=== PATIENT | female | born 1945 ===

== ENCOUNTER 2023-02-21 21:35 | Inpatient (IN) | payer OTHER ==
--- NOTE | 2023-02-21 22:53 | RAD REPORT ---
EXAM DESCRIPTION: CT - Spine Lumbar Wo Con - 02/21/2023 10:42 pm CLINICAL HISTORY: PAIN COMPARISON: No comparisons TECHNIQUE: Axial noncontrast CT imaging of the lumbar spine was performed with coronal and sagittal re-formatted images. All CT scans are performed using dose optimization technique as appropriate and may include automated exposure control or mA/KV adjustment according to patient size. FINDINGS: No acute lumbar spine fracture seen. No aggressive marrow pattern or malalignment. Heavily calcified abdominal aorta. Hysterectomy. Cholecystectomy. Paraspinal tissues are normal in thickness. No paraspinal abscess or hematoma seen. Intervertebral disc disease assessment is inherently limited by CT. Within these limitations, no high -grade canal stenosis suspected. Multilevel degenerate disc disease noted. Varying degrees of neural foraminal narrowing noted. Disc height loss and endplate sclerosis is most advanced at L1-2. IMPRESSION: No acute fracture of the lumbar spine.
--- NOTE | 2023-02-21 22:56 | RAD REPORT ---
EXAM DESCRIPTION: CT - Pelvis Wo Cont - 02/21/2023 10:42 pm CLINICAL HISTORY: TRAUMA COMPARISON: No comparisons FINDINGS: Nondisplaced fracture involving the right superior and inferior pubic rami. Nondisplaced l eft pubic symphysis fracture. No extension to the acetabulum is identified. Both hips are located. Yonathan th femurs are intact. No fracture of the sacrum or coccyx identified. IMPRESSION: Nondisplaced fracture of the right obturator ring. Nondisplaced left pubic symphysis fra cture. No proximal femur fracture identified.
[2023-02-22] MEDS ORDERED: ONDANSETRON 4 MG/2 ML VIAL IV PRN (00:25)
--- NOTE | 2023-02-22 00:27 | P.HP ---
Certification for Inpatient Patient admitted to: Inpatient With expected LOS: <2 Midnights Patient will require the following post-hospital care: Rehabilitation Practitioner: I am a practitioner with admitting privileges, knowledge of patient current condition, hospital course, and medical plan of care. Services: Services provided to patient in accordance with Admission requirements found in Title 42 Section 412.3 of the Code of Federal Regulations Patient History Date of Service: 02/22/23 Reason for admission: Fall History of Present Illness: 77-year-old female with a past medical history of hypertension, anxiety, tobacco use depression, leukemia presents to the emergency room after a fall this evening around 8:30 PM. She reported her leg gave out on her. She denies chest pain, shortness of breath, abdominal pain, dysuria, syncope, edema. Lives alone, daughter lives near by, 1-2 ppd smoker, no hx of COPD, no use of home 02, refused 02 2L in ED sats 88% with pain meds. will need rehab at placement, Per Ortho-Ambulaton/WB status, Lumbar CT Heavily calcified, No acute lumbar spine fracture seen. Multilevel degenerate disc disease noted. Varying degrees of neural foraminal narrowing noted. Disc height loss and endplate sclerosis is most advanced at L1-2. IMPRESSION: No acute fracture of the lumbar spine. Pelvis CT IMPRESSION: Nondisplaced fracture of the right obturator ring. Nondisplaced left pubic symphysis fracture. No proximal femur fracture identified - Past Medical/Surgical History -: Hypertension, -: Hyperlipidemia -: Anxiety -: Depression -: Cholecystectomy -: -: Lumpectomy - Social History Smoking Status: Current every day smoker Smoking therapy provided: Yes Alcohol use: No CD- Drugs: No Caffeine use: Yes Place of Residence: Home Review of Systems 10-point ROS is otherwise unremarkable Physical Examination - Physical Exam General: Alert, In no apparent distress, Oriented x3, Cooperative HEENT: Atraumatic, Normocephalic, PERRLA, Mucous membr. moist/pink Neck: Supple, 2+ carotid pulse no bruit, JVD not distended Respiratory: Clear to auscultation bilaterally, Normal air movement Cardiovascular: No edema, Normal pulses, Regular rate/rhythm Capillary refill: <2 Seconds Gastrointestinal: Normal bowel sounds, Non-distended Musculoskeletal: Other (non displaced pelvic fracture, pain with range of motion) Integumentary: No rashes, No breakdown Neurological: Normal speech, Normal strength at 5/5 x4 extr, Cranial nerves 3-12 intact Assessment and Plan - Plan Assement/Plan Nondisplaced fracture involving the right superior and inferior pubic rami. HTN HLD Anxiety Depression Tobacco use with mild hyoxia DVT pplx Assement/Plan Nondisplaced fracture involving the right superior and inferior pubic rami. Ortho consult PT consult, Bedrest HTN resume home meds, prn antihypertensives HLD resume home meds Anxiety resume home meds prn anti anxiety meds Depression resume home meds Tobacco use with mild hyoxia PRN 02 keep sats <resume home meds>90% refused nicotine patch DVT pplx lovenox full code Diet cardiac Discharge Plan: Other (Rehab) - Advance Directives Does patient have a Living Will: No Does patient have a Durable POA for Healthcare: No - Code Status/Comfort Care Code Status Assessed: Yes Code Status: Full Code Critical Care: No Time Spent Managing Pts Care (In Minutes): 55
--- NOTE | 2023-02-22 00:33 | EDPHYS ---
Physician Documentation [facility] Name: Lazaro Pennington Age: 77 yrs Sex: Female : 1945 Arrival Date: 02/21/2023 Time: 21:35 Bed 2 Private MD: ED Physician Brigida Olivas HPI: 02/21 21:48 This 77 yrs old Female presents to ER via EMS with complaints of Fall Injury. sd2 21:48 77-year-old female presents via EMS with chief complaint of right hip pain status post sd2 fall this evening. She reports she was walking around her apartment not using her walker and tripped and fell landing on her right hip. She denies any head injury or loss of consciousness. She denies any numbness, tingling, neck or back pain. She was treated with 100 mcg of fentanyl by EMS prior to arrival and her current pain level is 0 out of 10.. Historical: - Allergies: 21:43 PENICILLINS; mb9 - Home Meds: 21:43 losartan oral [Active]; Wellbutrin Oral [Active]; Hydrochlorothiazide Oral [Active]; mb9 - PMHx: 21:43 Hypertensive disorder; Depressive disorder; Leukemia; mb9 - PSHx: 21:43 section; Tonsillectomy; Cholecystectomy; mb9 - Immunization history:: Adult Immunizations up to date. - Social history:: Smoking status: Patient reports the use of cigarette tobacco products, smokes two packs cigarettes per day. ROS: 21:48 Constitutional: Negative for fever, chills, and weight loss, Eyes: Negative for injury, sd2 pain, redness, and discharge, Cardiovascular: Negative for chest pain, palpitations, and edema, Respiratory: Negative for shortness of breath, cough, wheezing. Abdomen/GI: Negative for abdominal pain, nausea, vomiting, diarrhea. Back: Negative for injury and pain, MS/Extremity: Positive for injury and negative for deformity, Skin: Negative for injury, rash, and discoloration, Neuro: Negative for headache, numbness and tingling. Exam: 21:48 Constitutional: This is a well developed, well nourished patient who is awake, alert, sd2 and in no acute distress. Head/Face: Normocephalic, atraumatic. Eyes: EOMI, normal conjunctiva bilaterally Neck: Trachea midline, no thyromegaly or masses palpated, and no cervical lymphadenopathy. Supple, full range of motion without nuchal rigidity, or vertebral point tenderness. No Meningismus. Chest/axilla: Normal chest wall appearance and motion. Nontender with no deformity. Cardiovascular: Regular rate and rhythm with a normal S1 and S2. No gallops, murmurs, or rubs. 2+ distal pulses. Respiratory: Lungs have equal breath sounds bilaterally, clear to auscultation and percussion. No rales, rhonchi or wheezes noted. No increased work of breathing, no retractions or nasal flaring. Abdomen/GI: Soft, non-tender, with normal bowel sounds. No guarding or rebound. No evidence of tenderness throughout. Back: Lumbar spinal tenderness present. No costovertebral tenderness. Skin: Warm, dry with normal turgor. Normal color with no rashes, no lesions, and no evidence of cellulitis. MS/ Extremity: Pulses equal, no cyanosis. Neurovascular intact. Full, normal range of motion. Ambulatory without difficulty. Psych: Awake, alert, with orientation to person, place and time. Behavior, mood, and affect are within normal limits. Vital Signs: 21:41 BP 183 / 101; Pulse 81; Resp 18; Temp 98.1(O); Pulse Ox 100% ; Weight 63.5 kg; Height 5 mb9 ft. 3 in. ; 22:45 BP 182 / 89; Pulse 74; Resp 18; Pulse Ox 94% on R/A; mb9 02/22 00:00 BP 206 / 91; Pulse 77; Resp 16; Pulse Ox 93% on R/A; jb4 00:06 BP 180 / 82; Pulse 85; Resp 16; Pulse Ox 91% on R/A; lg3 00:30 BP 183 / 92; Pulse 86; Pulse Ox 92% on R/A; lg3 00:45 BP 159 / 73; Pulse 77; Pulse Ox 83% on R/A; lg3 01:00 BP 162 / 78; Pulse 77; Pulse Ox 92% on 3 lpm NC; lg3 02/21 21:41 Body Mass Index 24.80 (63.50 kg, 160.02 cm) mb9 [place] Coma Score: 02/21 21:41 Eye Response: spontaneous(4). Motor Response: obeys commands(6). Verbal Response: mb9 oriented(5). Total: 15. Trauma Score (Adult): 21:41 Eye Response: spontaneous(1); Verbal Response: oriented(1); Motor Response: obeys mb9 commands(2); Systolic BP: > 89 mm Hg(4); Respiratory Rate: 10 to 29 per min(4); [place] Score: 15; Trauma Score: 12 MDM: 21:46 Patient medically screened. sd2 21:48 Differential diagnosis: Differential diagnosis includes but is not limited to: sd2 Fracture, contusion, abrasion, closed head injury, pneumothorax, intra-abdominal injury, intracranial hemorrhage, spinal injury among others. Data reviewed: vital signs, nurses notes, EMS record, radiologic studies, CT scan. Historians other than the Patient: EMS: Provides initial report. 02/22 00:06 Counseling: I had a detailed discussion with the patient and/or guardian regarding: the sd2 historical points, exam findings, and any diagnostic results supporting the discharge/admit diagnosis, radiology results, the need for further work-up and treatment in the hospital. ED course: Imaging reviewed with nondisplaced hip fractures noted. Pt will need rehab placement and is in agreement with this plan. Will admit for further management. . 02/22 00:27 Order name: Urinalysis w/ reflexes EDMS 02/22 00:28 Order name: Basic Metabolic Panel EDMS 02/22 00:28 Order name: Basic Metabolic Panel EDMS 02/22 00:28 Order name: Basic Metabolic Panel EDMS 02/22 00:28 Order name: Basic Metabolic Panel EDMS 02/22 00:28 Order name: CBC with Automated Diff EDMS 02/22 00:28 Order name: CBC with Automated Diff EDMS 02/22 00:28 Order name: CBC with Automated Diff EDMS 02/22 00:28 Order name: CBC with Automated Diff EDMS 02/22 00:28 Order name: Magnesium EDMS 02/22 00:28 Order name: Magnesium EDMS 02/22 00:28 Order name: Magnesium EDMS 02/22 00:28 Order name: Magnesium EDMS 02/22 00:28 Order name: Phosphorus EDMS 02/22 00:28 Order name: Phosphorus EDMS 02/22 00:28 Order name: Phosphorus EDMS 02/22 00:28 Order name: Phosphorus EDMS 02/21 21:47 Order name: CT Lumbar Spine Wo Con; Complete Time: 23:02 sd2 02/21 21:47 Order name: CT Pelvis wo Cont; Complete Time: 23:02 ma2 02/22 00:27 Order name: CONS Physician Consult [facility] 02/22 00:27 Order name: Heart Healthy [facility] 02/22 01:12 Order name: Occupational Therapy Consult [facility] 02/22 01:12 Order name: Physical Therapy Consult [facility] Administered Medications: 00:36 Drug: morphine IVP or IV 4 mg Route: IVP; Infused Over: 4 mins; Site: right forearm; lg3 01:16 Follow up: Response: Other; Other pt became hypoxic post administration. oxygen lg3 applied. provider notified 01:02 Drug: Ativan IVP 1 mg Route: IVP; Site: right antecubital; lg3 01:17 Follow up: Response: No adverse reaction; Marked relief of symptoms; Anxiety decreased; lg3 RASS: Drowsy (-1) Disposition Summary: 02/22/23 00:32 Hospitalization Ordered Hospitalization Status: Inpatient Admission sd2 Provider: Arsen Blackwell Location: Telemetry/MedSurg (Inpatient) sd2 Condition: Stable sd2 Problem: new sd2 Symptoms: have improved sd2 Bed/Room Type: [place] [id number] Room Assignment: 422(02/22/23 00:43) mw Diagnosis - Mechanical fall sd2 - Closed fracture of right obturator ring sd2 - Closed nondisplaced fracture of left pubic symphisis sd2 Forms: - Medication Reconciliation Form sd2 - SBAR form sd2 Signatures: Dispatcher [employer] [facility] Dora Maldonado RN RN Radha Del Valle RN RN lg3 Brigida Olivas MD MD sd2 Divya Rausch RN RN mb9 Corrections: (The following items were deleted from the chart) 00:43 00:32 sd2 mw
--- NOTE | 2023-02-22 00:33 | ER ---
Nurse's Notes [facility] Name: Lazaro Pennington Age: 77 yrs Sex: Female : 1945 Arrival Date: 02/21/2023 Time: 21:35 Bed 2 Private MD: Diagnosis: Mechanical fall;Closed fracture of right obturator ring;Closed nondisplaced fracture of left pubic symphisis Presentation: 02/21 21:41 Chief complaint: Chief complaint: EMS states: "toned out for tripping and fell landing mb9 on right hip. On scene pt complain of 10/10 pain on tailbone with deformity present. Gave total of 100 mcg of Fentanyl and \\T\\ mg of Zofran via 20 f right AC. Pt has history of falling often. Pt denies LOC, hitting head, or taking blood thinners". 21:41 Coronavirus screen: Vaccine status: Patient reports receiving the 2nd dose of the covid mb9 vaccine. Ebola Screen: No symptoms or risks identified at this time. Initial Sepsis Screen: Does the patient meet any 2 criteria? No. Patient's initial sepsis screen is negative. Does the patient have a suspected source of infection? No. Patient's initial sepsis screen is negative. Risk Assessment: Do you want to hurt yourself or someone else? Patient reports no desire to harm self or others. Onset of symptoms was February 21, 2023. 21:41 Method Of Arrival: EMS: [facility] 21:41 Acuity: MARITZA 3 mb9 Triage Assessment: 21:44 General: Appears uncomfortable, Behavior is cooperative. Pain: Complains of pain in mb9 pelvis Pain radiates to right leg. Neuro: Sanchez Agitation-Sedation Scale (RASS): 0 - Alert and Calm Level of Consciousness is awake, alert, obeys commands, Oriented to person, place, time, situation, Appropriate for age. Cardiovascular: Patient's skin is warm and dry. Respiratory: Airway is patent Respiratory effort is even, unlabored, Respiratory pattern is regular, symmetrical, Breath sounds are clear bilaterally. Derm: Skin is pink, warm \\T\\ dry. Musculoskeletal: Range of motion: intact in all extremities. Historical: - Allergies: 21:43 PENICILLINS; mb9 - Home Meds: 21:43 losartan oral [Active]; Wellbutrin Oral [Active]; Hydrochlorothiazide Oral [Active]; mb9 - PMHx: 21:43 Hypertensive disorder; Depressive disorder; Leukemia; mb9 - PSHx: 21:43 section; Tonsillectomy; Cholecystectomy; mb9 - Immunization history:: Adult Immunizations up to date. - Social history:: Smoking status: Patient reports the use of cigarette tobacco products, smokes two packs cigarettes per day. Screenin:47 [facility] ED Fall Risk Assessment (Adult) History of falling in the last 3 months, mb9 including since admission Yes- fall prone (multiple falls) (3 pts) Confusion or Disorientation No (0 pts) Intoxicated or Sedated No (0 pts) Impaired Gait Yes (1 pt) Mobility Assist Device Used Yes (1 pt) Altered Elimination No (0 pt) Score/Fall Risk Level 3 or more points = High Risk Oriented to surroundings, Maintained a safe environment, Educated pt \\T\\ family on fall prevention, incl call for assistance when getting out of bed. Abuse screen: Denies threats or abuse. Nutritional screening: No deficits noted. Tuberculosis screening: No symptoms or risk factors identified. Assessment: 21:48 Reassessment: see triage assessment. mb9 23:04 Reassessment: No changes from previously documented assessment. Patient and/or family mb9 updated on plan of care and expected duration. Pain level reassessed. Patient is alert, oriented x 3, equal unlabored respirations, skin warm/dry/pink. 15 00:00 Reassessment: Pt noted to desat to 86-88% on RA while sleeping. Refused NC. Pt states " jb4 I am breathing fine, I am not putting on oxygen, it hurts my throat." Provider made aware. Once awake pt no satting 93% on RA. Provider notified of Pt's blood pressure. 00:04 Reassessment: Patient appears in no apparent distress at this time. Patient and/or jb4 family updated on plan of care and expected duration. Pain level reassessed. Patient is alert, oriented x 3, equal unlabored respirations, skin warm/dry/pink. 00:37 Pain: Complains of pain in pelvis. lg3 01:02 General: Appears in no apparent distress. uncomfortable, Behavior is cooperative, lg3 anxious. Neuro: Sanchez Agitation-Sedation Scale (RASS): +1 Restless Level of Consciousness is awake, alert, obeys commands, Oriented to person, place, time, situation. Respiratory: Airway is patent Respiratory effort is even, unlabored, Respiratory pattern is regular, symmetrical, oxygen saturation 86%RA. pt denies SOB but anxiety has increased. provider notified. order received for 1mg ativan. post administration pt agreed on use of supplemental oxygen. 3L via NC applied at this time. Vital Signs: 02/21 21:41 BP 183 / 101; Pulse 81; Resp 18; Temp 98.1(O); Pulse Ox 100% ; Weight 63.5 kg; Height 5 mb9 ft. 3 in. ; 22:45 BP 182 / 89; Pulse 74; Resp 18; Pulse Ox 94% on R/A; mb9 02/22 00:00 BP 206 / 91; Pulse 77; Resp 16; Pulse Ox 93% on R/A; jb4 00:06 BP 180 / 82; Pulse 85; Resp 16; Pulse Ox 91% on R/A; lg3 00:30 BP 183 / 92; Pulse 86; Pulse Ox 92% on R/A; lg3 00:45 BP 159 / 73; Pulse 77; Pulse Ox 83% on R/A; lg3 01:00 BP 162 / 78; Pulse 77; Pulse Ox 92% on 3 lpm NC; lg3 02/21 21:41 Body Mass Index 24.80 (63.50 kg, 160.02 cm) mb9 Analy Coma Score: 02/21 21:41 Eye Response: spontaneous(4). Motor Response: obeys commands(6). Verbal Response: mb9 oriented(5). Total: 15. Trauma Score (Adult): 21:41 Eye Response: spontaneous(1); Verbal Response: oriented(1); Motor Response: obeys mb9 commands(2); Systolic BP: > 89 mm Hg(4); Respiratory Rate: 10 to 29 per min(4); Analy Score: 15; Trauma Score: 12 ED Course: 21:37 Patient arrived in ED. jj6 21:40 Divya Rausch, ZAIDA is Primary Nurse. mb9 21:43 Triage completed. mb9 21:46 Brigida Olivas MD is Attending Physician. sd2 21:48 Arm band placed on. mb9 21:48 Placed in gown. Bed in low position. Call light in reach. Side rails up X 1. Client mb9 placed on continuous cardiac and pulse oximetry monitoring. NIBP monitoring applied. Noise minimized. Warm blanket given. 21:48 No provider procedures requiring assistance completed. Maintain EMS IV. Dressing mb9 intact. Good blood return noted. Site clean \\T\\ dry. Gauge \\T\\ site: 20g right AC. 22:43 CT Lumbar Spine Wo Con In Process Unspecified. EDMS 22:43 CT Pelvis wo Cont In Process Unspecified. EDMS 02/22 00:31 Brigida Olivas MD is Hospitalizing Provider. sd2 00:31 Arsen Blackwell MD is Hospitalizing Provider. sd2 01:32 Patient admitted, IV remains in place. intact, No redness/swelling at site. lg3 Administered Medications: 00:36 Drug: morphine IVP or IV 4 mg Route: IVP; Infused Over: 4 mins; Site: right forearm; lg3 01:16 Follow up: Response: Other; Other pt became hypoxic post administration. oxygen lg3 applied. provider notified 01:02 Drug: Ativan IVP 1 mg Route: IVP; Site: right antecubital; lg3 01:17 Follow up: Response: No adverse reaction; Marked relief of symptoms; Anxiety decreased; lg3 RASS: Drowsy (-1) Medication: 02/21 21:48 VIS not applicable for this client. mb9 Outcome: 02/22 00:32 Decision to Hospitalize by Provider. sd2 01:31 Admitted to Med/surg accompanied by nurse, via stretcher, room 422, Report called to lg3 Belinda 01:31 Condition: stable 01:31 Instructed on the need for admit, Demonstrated understanding of instructions. 02:05 Patient left the ED. lg3 Signatures: Dispatcher [employer] EDMS Nazario Peguero RN RN jb4 Radha Garcia, RN RN lg3 Radha Narayananj6 Brigida Olivas MD MD sd2 Divya Rausch RN RN mb9 Corrections: (The following items were deleted from the chart) 02/21 21:43 21:41 Chief complaint: mb9 mb9 21:47 21:41 Chief complaint: EMS states: "toned out for tripping and fell landing on right mb9 hip. On scene pt complain of 10/10 pain on tailbone with deformity present. Pt has history of falling often. Pt denies LOC, hitting head, or taking blood thinners" Chief complaint: EMS states: "toned out for tripping and fell landing on right hip. On scene pt complain of 10/10 pain on tailbone with deformity present. Pt has history of falling often. Pt denies LOC, hitting head, or taking blood thinners" mb9 02/22 00:07 00:04 BP 206 / 91; Pulse 77bpm; Resp 16bpm; Pulse Ox 93% RA; jb4 jb4 01:16 00:06 BP 180 / 82; Pulse 85bpm; Resp 16bpm; Pulse Ox 96% RA; jb4 lg3
[2023-02-22] MEDS ORDERED: MORPHINE 4 MG/ML SYR ONE (00:42)
[2023-02-22] MEDS ORDERED: LORazepam 2 MG/ML VIAL ONE (00:59)
[2023-02-22] MEDS: LIDOCAINE 4% PATCH TOP SCH ×2 (02:44→08:00)
[2023-02-22] MEDS: HYDROCODONE/APAP 5/325 MG TAB PO PRN ×2 (08:00→23:04)
[2023-02-22] MEDS ORDERED: PNEUMOCOCCAL VACCINE 0.5 ML IMVAC ONE (09:00)
[2023-02-22] MEDS: LOSARTAN/HCTZ 50-12.5 PO SCH (10:44)
[2023-02-22 11:22] LABS: Hematocrit 43.1 % (36.0-45.0); Lymphocytes % 53.9 % (15.3-44.8); MPV 8.1 fL (7.6-11.3); RBC Red Blood Cell Count 4.69 M/uL (3.86-4.86)
[2023-02-22 11:40] LABS: Specific Gravity 1.023 (1.005-1.030); Urine Bilirubin NEGATIVE (Negative); Urine Blood Negative (Negative); Urine Clarity Clear (Clear); Urine Color Yellow (Yellow); Urine Glucose 2+ (Negative); Urine Protein NEGATIVE (Negative); Urine Urobilinogen Normal (Normal)
[2023-02-22 12:13] LABS: Smudge Cells MANY
[2023-02-22 12:17] LABS: Blood Morphology Comment NOT SEEN (NOT SEEN); Platelet Estimate ADEQ
[2023-02-22] MEDS: ALBUTEROL 2.5 MG/3 ML NEB SOL IH SCH ×2 (13:50→20:40)
[2023-02-22] MEDS: BUPROPRION HCL S.R. 150MG TAB PO SCH (21:21)
[2023-02-22] MEDS: HYDRALAZINE HCL 20 MG/ML VIAL IV PRN (23:05)
[2023-02-22] MEDS: ALPRAZOLAM 0.25 MG TABLET PO PRN (23:05)
[2023-02-23] MEDS: ALBUTEROL 2.5 MG/3 ML NEB SOL IH SCH ×4 (02:30→20:45)
[2023-02-23 03:14] VITALS: BMI 24.7
[2023-02-23 04:16] LABS: Absolute Lymphocytes (CBC) 10.1 K/uL (0.7-4.9); Hematocrit 40.9 % (36.0-45.0); Lymphocytes % 44.9 % (15.3-44.8); MCV 91.4 fL (80-100); MPV 8.6 fL (7.6-11.3); RBC Red Blood Cell Count 4.48 M/uL (3.86-4.86)
[2023-02-23 04:31] LABS: Magnesium 2.2 mg/dL (1.6-2.4); Phosphorus 2.2 mg/dL (2.5-4.9); Potassium 3.6 mEq/L (3.5-5.1)
[2023-02-23] MEDS: POTASS/SODIUM PHOSPHATE 1 PKT POWD.PACK PO SCH ×3 (06:31→08:58)
[2023-02-23] MEDS: DULERA 200/5 (MOMETASONE/FORMOTEROL) INHALER IH SCH ×2 (08:56→21:26)
[2023-02-23] MEDS: LIDOCAINE 4% PATCH TOP SCH (08:57)
[2023-02-23] MEDS: LOSARTAN/HCTZ 50-12.5 PO SCH (08:58)
[2023-02-23] MEDS: LOSARTAN POTASSIUM 50 MG TABLET PO SCH (09:00)
[2023-02-23] MEDS ORDERED: CEFTRIAXONE 1,000 MG in NA CHLORIDE 0.9% 50 ML IVPB SCH (09:00)
[2023-02-23] MEDS ORDERED: HOME MED 1 EA UNK (Bupropion Hcl [Wellbutrin Sr] 100 MG Tablet.Er) PO SCH (09:00)
[2023-02-23] MEDS ORDERED: POTASSIUM CL SA 10 MEQ TAB PO ONE (09:00)
--- NOTE | 2023-02-23 09:29 | RAD REPORT ---
EXAM DESCRIPTION: Latricia Single View02/23/2023 9:17 am CLINICAL HISTORY: RO pneumonia COMPARISON: No comparisons TECHNIQUE: Portable AP view of the chest. FINDINGS: Patient rotation limits evaluation. Patchy airspace opacities involving left mid lung and right lung base. No pneumothorax or effusion. The cardiomediastinal contours are unremarkable. IMPRESSION: Patchy airspace opacities involving left mid lung and right lung base, could reflect pne umonia, pulmonary edema, or a combination of both.
--- NOTE | 2023-02-23 09:46 | P.PN ---
Subjective Date of Service: 02/23/23 Chief Complaint: Patient complaining of a headache and earache Pelvic pain is improving headache is acute in onset Review of Systems General: Weakness, As per HPI Physical Examination - Vital Signs Temperature: 98.6 F Blood Pressure: 155/68 Pulse: 99 Respirations: 24 Pulse Ox (%): 89 - Physical Exam General: Alert, Oriented x3, Mild distress Respiratory: Clear to auscultation bilaterally Cardiovascular: No edema, Regular rate/rhythm, Normal S1 S2 Gastrointestinal: Normal bowel sounds, Soft and benign Assessment And Plan - Current Problems (Diagnosis) (1) Pelvic fracture Current Visit: Yes Status: Acute Plan: Patient is 77 years of age admitted with pelvic fracture doing better complaining of headaches patient has mild leukemia has the reason for elevated white count blood pressure is elevated on some losartan patient is intolerance to hydrochlorothiazide most likely is conservative therapy new with PT OT. Consult pending Qualifiers: Encounter type: subsequent encounter Sublocation of pubis: superior rim Laterality: left
[2023-02-23] MEDS: ACETAMINOPHEN 500 MG TAB PO PRN (11:40)
[2023-02-23] MEDS: BUPROPRION HCL S.R. 150MG TAB PO SCH (21:27)
[2023-02-23] MEDS: HYDROCODONE/APAP 5/325 MG TAB PO PRN (23:20)
[2023-02-23] MEDS: HYDRALAZINE HCL 20 MG/ML VIAL IV PRN (23:29)
[2023-02-23] MEDS: ALPRAZOLAM 0.25 MG TABLET PO PRN (23:32)
[2023-02-24] MEDS: ALBUTEROL 2.5 MG/3 ML NEB SOL IH SCH ×4 (01:07→20:00)
[2023-02-24 07:47] LABS: Absolute Lymphocytes (CBC) 10.9 K/uL (0.7-4.9); Hematocrit 41.4 % (36.0-45.0); MPV 8.6 fL (7.6-11.3); RBC Red Blood Cell Count 4.55 M/uL (3.86-4.86)
[2023-02-24 07:57] LABS: Magnesium 2.2 mg/dL (1.6-2.4); Phosphorus 2.1 mg/dL (2.5-4.9); Potassium 3.8 mEq/L (3.5-5.1)
[2023-02-24] MEDS: LIDOCAINE 4% PATCH TOP SCH (09:00)
[2023-02-24] MEDS: DULERA 200/5 (MOMETASONE/FORMOTEROL) INHALER IH SCH ×2 (09:00→19:35)
[2023-02-24] MEDS: LOSARTAN POTASSIUM 50 MG TABLET PO SCH (09:00)
[2023-02-24 13:52] LABS: Blood Morphology Comment NOT SEEN (NOT SEEN); Platelet Estimate ADEQ; Smudge Cells 2+
--- NOTE | 2023-02-24 14:33 | RAD REPORT ---
EXAM DESCRIPTION: RAD - Chest Single View - 02/24/2023 1:40 pm CLINICAL HISTORY: RO pneumonia Chest pain. COMPARISON: Chest Single View dated 02/23/2023 FINDINGS: Portable technique limits examination quality. Bibasilar lung consolidation is present, which has mildly progressed since 02/23/2023 study. The hear t is mildly enlarged in size. No displaced fractures.Aortic atherosclerosis. IMPRESSION: Mild worsening in bibasilar lung infiltrate/pneumonia pattern since comparative study.
--- NOTE | 2023-02-24 16:57 | P.PN ---
Subjective Date of Service: 02/24/23 Chief Complaint: Patient complaining of a headache and earache Patient reports pain only with movement. No pelvic pain at rest. Physical Examination - Vital Signs Temperature: 99.3 F Blood Pressure: 160/67 Pulse: 114 Respirations: 18 Pulse Ox (%): 91 Assessment And Plan - Plan Physical Exam General: Alert, In no apparent distress, Oriented x3, Cooperative Neck: Supple, JVD not distended Respiratory: Clear to auscultation bilaterally, Normal air movement Cardiovascular: No edema, Normal pulses, Regular rate/rhythm Gastrointestinal: Normal bowel sounds, Non-distended, no tenderness. Musculoskeletal: pain with range of motion-both hips. Integumentary: No rashes, No breakdown Neurological: Normal speech, no focal motor deficit. Diagnosis Nondisplaced fracture involving the right superior and inferior pubic rami. HTN HLD Anxiety Depression Tobacco use. Chronic respiratory failure with hypoxia Assement/Plan Nondisplaced fracture involving the right superior and inferior pubic rami. Conservative therapy Awaiting PT evaluate, Activity as tolerated. Anticipating disposition to skilled rehab HTN Continue home meds, prn antihypertensives HLD resume home meds Anxiety resume home meds prn anti anxiety meds Depression resume home meds Chronic respiratory failure with hypoxia Suspect increased interstitial changes on chest x-ray. Radiology reports possible edema Trial of Lasix Obtain echocardiogram. Smoking cessation advised Supplemental oxygen. Patient may need home oxygen on discharge Patient is refusing nebulizers and inhalers. She states that they make her sick. DVT pplx lovenox full code
[2023-02-24] MEDS: BUPROPRION HCL S.R. 150MG TAB PO SCH (22:15)
[2023-02-24] MEDS: ACETAMINOPHEN 500 MG TAB PO PRN (23:49)
[2023-02-25] MEDS: ALBUTEROL 2.5 MG/3 ML NEB SOL IH SCH ×2 (02:00→08:00)
[2023-02-25 07:06] LABS: Absolute Lymphocytes (CBC) 12.3 K/uL (0.7-4.9); Hematocrit 39.6 % (36.0-45.0); Lymphocytes % 62.5 % (15.3-44.8); MPV 8.5 fL (7.6-11.3); RBC Red Blood Cell Count 4.35 M/uL (3.86-4.86)
[2023-02-25 07:20] LABS: Magnesium 2.3 mg/dL (1.6-2.4); Phosphorus 2.5 mg/dL (2.5-4.9); Potassium 3.9 mEq/L (3.5-5.1)
--- NOTE | 2023-02-25 07:27 | P.PN ---
Date of Service: 02/25/23 Subjective: doing okay, +SOB on exertion continues to show improvement with PT, but current functionality is not sufficient to go home alone until her gait ability improves. no BM for a few days, +flatus no acute events overnight ROS: 10 point ROS as noted above, otherwise negative Physical Exam: GEN: Alert, oriented, NAD HEENT: Normal conjunctiva, sclera anicteric CV: Regular rate and rhythm, trace edema, +Systolic Murmur Pulm: Nonlabored respirations on 2L NC ABD: Soft, nontender, nondistended MSK: pain with ROM - both hips Neuro: Normal speech, normal affect vitals reviewed Problem List: Nondisplaced fracture involving the right superior and inferior pubic rami. acute hypoxic respiratory failure Hypertension Hyperlipidemia Anxiety Depression Tobacco use Nondisplaced fracture involving the right superior and inferior pubic rami. CT pelvis (02/21): Nondisplaced fracture of the right obturator ring. Nondisplaced left pubic symphysis fracture. No proximal femur fracture identified CT lumbar spine (02/21): No acute fracture of the lumbar spine. Ortho consulted Conservative therapy Continue PT/OT acute hypoxic respiratory failure CXR (02/23): Patchy airspace opacities involving left mid lung and right lung base: pneumonia vs pulmonary edema, or combo of both suspect some degree of CHF Trial of Lasix (02/25) Echo pending , murmur on exam wean oxygen Patient may need home O2 on discharge DC nebulizers and inhalers d/t patient refusing (making her feel sick/headache) Hypertension Hyperlipidemia Anxiety Depression Continue home medications Tobacco use Smoking cessation advised VTE: Lovenox Code: Full Dispo: SNF ~1-2 days ss/cm consulted
[2023-02-25] MEDS ORDERED: FUROSEMIDE 20 MG/ 2ML VIAL IV ONE (09:00)
[2023-02-25] MEDS: DULERA 200/5 (MOMETASONE/FORMOTEROL) INHALER IH SCH ×2 (11:04→20:44)
[2023-02-25] MEDS: LIDOCAINE 4% PATCH TOP SCH (11:05)
[2023-02-25] MEDS: LOSARTAN POTASSIUM 50 MG TABLET PO SCH (11:07)
[2023-02-25 11:37] LABS: Blood Morphology Comment NOT SEEN (NOT SEEN); Platelet Estimate ADEQ; Platelets, Giant FEW PRESENT; Smudge Cells PRESENT
[2023-02-25] MEDS ORDERED: POTASSIUM CL SA 10 MEQ TAB PO ONE (17:25)
[2023-02-25] MEDS: POTASS/SODIUM PHOSPHATE 1 PKT POWD.PACK PO SCH ×3 (17:35→20:43)
[2023-02-25] MEDS: BUPROPRION HCL S.R. 150MG TAB PO SCH (20:44)
[2023-02-26 05:50] LABS: Absolute Lymphocytes (CBC) 12.3 K/uL (0.7-4.9); Hematocrit 38.9 % (36.0-45.0); Lymphocytes % 62.9 % (15.3-44.8); MCV 91.1 fL (80-100); MPV 8.3 fL (7.6-11.3); RBC Red Blood Cell Count 4.27 M/uL (3.86-4.86)
[2023-02-26] MEDS: HYDRALAZINE HCL 20 MG/ML VIAL IV PRN (05:57)
[2023-02-26 06:08] LABS: Magnesium 2.3 mg/dL (1.6-2.4); Phosphorus 2.6 mg/dL (2.5-4.9); Potassium 3.9 mEq/L (3.5-5.1)
[2023-02-26] MEDS: HYDROCODONE/APAP 5/325 MG TAB PO PRN (06:20)
--- NOTE | 2023-02-26 07:19 | P.PN ---
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 acute hypoxic respiratory failure Hypertension Hyperlipidemia Anxiety Depression Tobacco use Nondisplaced fracture involving the right superior and inferior pubic rami. CT pelvis (02/21): Nondisplaced fracture of the right obturator ring. Nondisplaced left pubic symphysis fracture. No proximal femur fracture identified CT lumbar spine (02/21): No acute fracture of the lumbar spine. Ortho consulted, however state never contacted/informed nondisplaced fracture, stable; non-operative management, to f/u in ortho office Conservative therapy Continue PT/OT PRN pain medication added tylenol #3 d/t norco making her drowsy acute hypoxic respiratory failure CXR (02/23): Patchy airspace opacities involving left mid lung and right lung base: pneumonia vs pulmonary edema, or combo of both suspect some degree of CHF Trial of Lasix (02/25) Echo pending , murmur on exam wean oxygen Patient may need home O2 on discharge DC nebulizers and inhalers d/t patient refusing (making her feel sick/headache) Hypertension Hyperlipidemia Anxiety Depression Continue home medications Tobacco use Smoking cessation advised VTE: Lovenox Code: Full Dispo: SNF ~1-2 days ss/cm consulted
--- NOTE | 2023-02-26 07:38 | RAD REPORT ---
EXAM DESCRIPTION: RAD - Chest Single View - 02/26/2023 5:08 am CLINICAL HISTORY: f/u pulm opacities Chest pain. COMPARISON: Chest Single View dated 02/24/2023; Chest Single View dated 02/23/2023 FINDINGS: Portable technique limits examination quality. Prominent emphysema is again noted. Bibasilar lung opacities again seen, fractionally improved since 02/14/2023 study. The heart is mildly enlarged in size. No displaced fractures.Aortic atherosclerosis . IMPRESSION: Mild improvement is seen in bibasilar lung opacities since 02/24/2023.
[2023-02-26] MEDS: LOSARTAN POTASSIUM 50 MG TABLET PO SCH (08:28)
[2023-02-26] MEDS: LIDOCAINE 4% PATCH TOP SCH (08:28)
[2023-02-26] MEDS: DULERA 200/5 (MOMETASONE/FORMOTEROL) INHALER IH SCH ×2 (08:31→20:31)
[2023-02-26 08:42] LABS: Blood Morphology Comment NOT SEEN (NOT SEEN); Platelet Estimate ADEQ; Platelets, Giant 1+; Smudge Cells 2+
[2023-02-26] MEDS ORDERED: hydroCHLOROthiazide 12.5 MG CAP PO SCH (09:00)
[2023-02-26] MEDS ORDERED: POTASSIUM CL SA 10 MEQ TAB PO ONE (09:00)
[2023-02-26] MEDS ORDERED: CODEINE 30MG/APAP 300MG TAB PO PRN (12:30)
[2023-02-26] MEDS: BUPROPRION HCL S.R. 150MG TAB PO SCH (20:30)
[2023-02-27] MEDS: ACETAMINOPHEN 500 MG TAB PO PRN (01:15)
[2023-02-27] MEDS: HYDROCODONE/APAP 5/325 MG TAB PO PRN ×2 (04:15→22:40)
[2023-02-27 07:01] LABS: Absolute Lymphocytes (CBC) 13.6 K/uL (0.7-4.9); Hematocrit 37.7 % (36.0-45.0); Lymphocytes % 68.4 % (15.3-44.8); MCV 91.5 fL (80-100); MPV 7.6 fL (7.6-11.3); RBC Red Blood Cell Count 4.12 M/uL (3.86-4.86)
[2023-02-27 07:12] LABS: Magnesium 2.2 mg/dL (1.6-2.4); Potassium 4.4 mEq/L (3.5-5.1)
--- NOTE | 2023-02-27 07:38 | P.PN ---
Date of Service: 02/27/23 Subjective: feels like shes improving slowly each day walked to the restroom with RW today with nurse no acute events overnight had a BM ROS: 10 point ROS as noted above, otherwise negative Physical Exam: GEN: Alert, oriented, NAD HEENT: Normal conjunctiva, sclera anicteric CV: Regular rate and rhythm, trace edema, +Systolic Murmur Pulm: Nonlabored respirations on 2L NC ABD: Soft, nontender, nondistended MSK: pain with ROM - both hips Neuro: Normal speech, normal affect vitals reviewed Problem List: Nondisplaced fracture involving the right superior and inferior pubic rami. acute hypoxic respiratory failure Hypertension Hyperlipidemia Anxiety Depression Tobacco use Nondisplaced fracture involving the right superior and inferior pubic rami. CT pelvis (02/21): Nondisplaced fracture of the right obturator ring. Nondisplaced left pubic symphysis fracture. No proximal femur fracture identified CT lumbar spine (02/21): No acute fracture of the lumbar spine. Ortho consulted, however state never contacted/informed nondisplaced fracture, stable; non-operative management, to f/u in ortho office Conservative therapy Continue PT/OT PRN pain medication added tylenol #3 d/t norco making her drowsy acute hypoxic respiratory failure CXR (02/23): Patchy airspace opacities involving left mid lung and right lung base: pneumonia vs pulmonary edema, or combo of both suspect some degree of CHF Trial of Lasix (02/25) Echo pending , murmur on exam wean oxygen Patient may need home O2 on discharge DC nebulizers and inhalers d/t patient refusing (making her feel sick/headache) Hypertension Hyperlipidemia Anxiety Depression Continue home medications Tobacco use Smoking cessation advised VTE: Lovenox Code: Full Dispo: SNF ~1-2 days ss/cm consulted
[2023-02-27] MEDS: LOSARTAN POTASSIUM 50 MG TABLET PO SCH (09:15)
[2023-02-27] MEDS: LIDOCAINE 4% PATCH TOP SCH (09:16)
[2023-02-27] MEDS: DULERA 200/5 (MOMETASONE/FORMOTEROL) INHALER IH SCH ×2 (09:16→20:07)
[2023-02-27] MEDS: BUPROPRION HCL S.R. 150MG TAB PO SCH (20:07)
[2023-02-27] MEDS: HYDRALAZINE HCL 20 MG/ML VIAL IV PRN (22:46)
[2023-02-28] MEDS ORDERED: ALPRAZOLAM 0.25 MG TABLET PO PRN (00:35)
[2023-02-28 03:50] LABS: Absolute Lymphocytes (CBC) 14.1 K/uL (0.7-4.9); Hematocrit 37.3 % (36.0-45.0); MCV 91.1 fL (80-100); RBC Red Blood Cell Count 4.09 M/uL (3.86-4.86)
[2023-02-28 04:06] LABS: Potassium 4.3 mEq/L (3.5-5.1)
[2023-02-28] MEDS: LOSARTAN POTASSIUM 50 MG TABLET PO SCH (08:07)
[2023-02-28] MEDS: LIDOCAINE 4% PATCH TOP SCH (08:07)
[2023-02-28] MEDS: DULERA 200/5 (MOMETASONE/FORMOTEROL) INHALER IH SCH ×2 (08:08→20:29)
--- NOTE | 2023-02-28 08:49 | P.DS ---
Admission Date: 02/22/23 Discharge Date: 03/02/23 Disposition: TRANSFER TO INTERMEDIATE Discharge Condition: FAIR Reason for Admission: Patient complaining of a headache and earache Consultations: Ortho - Dr. Hemphill Brief History of Present Illness: 77yo F, PMH: hypertension, anxiety, tobacco use depression, leukemia Patient presents to the emergency room after a fall this evening around 8:30 PM. She reported her leg gave out on her. She denies chest pain, shortness of breath, abdominal pain, dysuria, syncope, edema. Lives alone, daughter lives near by, 1-2 ppd smoker, no hx of COPD, no use of home 02, refused 02 2L in ED sats 88% with pain meds. Lumbar CT Heavily calcified, No acute lumbar spine fracture seen. Multilevel degenerate disc disease noted. Varying degrees of neural foraminal narrowing noted. Disc height loss and endplate sclerosis is most advanced at L1-2. Hospital Course: Problem List: Nondisplaced fracture involving the right superior and inferior pubic rami. acute hypoxic respiratory failure secondary to chronic emphysema bilateral pulmonary opacities and effusion, possible pneumonia vs fluid overload Congestion/bilateral ear pain Hypertension Hyperlipidemia Anxiety Depression Tobacco use h/o leukemia Patient presented after fall and found to have 2 nondisplaced pelvic fractures - right obturator ring fracture and left pubic symphysis fracture. Orthopedic surgery contacted in the ED and advised medical management, no indication for surgery. Patient was admitted and managed with physical therapy, pain control, and she had gradual improvement. She was discharged to SNF for ongoing monitoring and rehab. On admission she was also noted to be mildly hypoxic, requiring 2 L nasal cannula. She denies shortness of breath. Chest x-ray noted some mild bilateral opacities most likely pulmonary edema versus possibility of pneumonia. Patient with stable leukocytosis which is reportedly chronic. She received a dose of Lasix. CT showed small bilateral pleural effusions, mild bilateral consolidations, concerning for atelectasis vs pneumonia, moderate to marked centrilobular emphysema. She remained afebrile throughout her hospitalization. Given her history of leukemia / risk, she was empirically treated for possible pneumonia with PO levaquin. She had improvement of her symptoms and was weaned off of oxygen. Her respirations continued to improve. Recommended repeat chest x-ray in a few days to follow pulmonary edema/opacities. Complete 7 day course of Levaquin. During her hospitalization, patient reported burning pain when swallowing shortly after admission and after taking nebulizers/inhalers. There were no oropharyngeal lesions seen on exam. Due to her ongoing symptoms/description, she was empirically treated for esophageal candidiasis on 02/28 with diflucan. She had improvement of her symptoms shortly after initiation of treatment. Recommended patient to complete 2 weeks course of diflucan. After improvement, she reported history of acid reflux. If no further improvement, consider GERD treatment. During her hospitalization, she reported feeling bilateral ear pressure and nasal/sinus congestion. Otoscopic exam was normal bilaterally. She was started on flonase and had improvement/resolution of her symptoms. Continue flonase. Medication changes Diflucan for 10 days (started 02/28) Levaquin for 7 days Continue home medications as previously prescribed Pain was managed with Joice which she reported made her sleepy through the day, she was being weaned to Tylenol 3 Flonase Follow-up: PCP within 1 week of discharge from [facility] Follow-up with orthopedic surgery, can follow-up with Dr. Hemphill in 2-3 weeks Physical Exam: GEN: Alert, oriented, NAD HEENT: Normal conjunctiva, sclera anicteric CV: Regular rate and rhythm, no edema, +Systolic Murmur Pulm: Nonlabored respirations on room air ABD: Soft, nontender, nondistended MSK: pain with ROM - both hips, mild discomfort with ROM of R shoulder Neuro: Normal speech, normal affect Vital Signs/Physical Exam: Temp Pulse Resp BP Pulse Ox 97.7 F 92 H 18 144/87 H 92 02/28/23 08:00 02/28/23 08:00 02/28/23 08:00 02/28/23 08:00 02/28/23 08:00 Laboratory Data at Discharge: WBC 19.80 thou/uL (4.3-10.9) H 02/28/23 03:08 Hgb 12.4 g/dL (12.0-15.0) 02/28/23 03:08 Hct 37.3 % (36.0-45.0) 02/28/23 03:08 Plt Count 279 thou/uL (152-406) 02/28/23 03:08 Sodium 131 mEq/L (136-145) L 02/28/23 03:08 Potassium 4.3 mEq/L (3.5-5.1) 02/28/23 03:08 BUN 15 mg/dL (7-18) 02/28/23 03:08 Creatinine 0.50 mg/dL (0.55-1.02) L 02/28/23 03:08 Glucose 97 mg/dL (74-106) 02/28/23 03:08 Phosphorus 2.6 mg/dL (2.5-4.9) 02/26/23 05:08 Magnesium 2.2 mg/dL (1.6-2.4) 02/27/23 06:43 Home Medications: Bupropion HCl [Wellbutrin Sr] 100 mg PO DAILY 02/22/23 Ergocalciferol (Vitamin D2) [Vitamin D2] 50,000 units PO SEECOM 02/22/23 Losartan/Hydrochlorothiazide [Losartan-Hctz 100-12.5 mg Tab] 100 mg PO DAILY 02/22/23 hydroCHLOROthiazide [Hydrochlorothiazide*] 12.5 mg PO DAILY 02/22/23 Codeine/APAP [Tylenol #3*] 1 tab PO Q6H PRN tab 02/28/23 Physician Discharge Instructions: Patient presented after fall and found to have 2 nondisplaced pelvic fractures - right obturator ring fracture and left pubic symphysis fracture. Orthopedic surgery contacted in the ED and advised medical management, no indication for surgery. Patient was admitted and managed with physical therapy, pain control, and she had gradual improvement. She was discharged to SNF for ongoing monitoring and rehab. On admission she was also noted to be mildly hypoxic, requiring 2 L nasal cannula. She denies shortness of breath. Chest x-ray noted some mild bilateral opacities most likely pulmonary edema versus possibility of pneumonia. Patient is stable leukocytosis which is reportedly chronic. Her antihypertensives were restarted include hydrochlorothiazide. She received a dose of Lasix. CT showed small bilateral pleural effusions, mild bilateral consolidations, concerning for atelectasis vs pneumonia, moderate to marked centrilobular emphysema. She was empirically treated for possible pneumonia and treated with PO levaquin. She had improvement of her symptoms and was weaned off of oxygen. Her respirations continued to improve. Recommended repeat chest x-ray in a few days to follow pulmonary edema/opacities. During her hospitalization, patient reported burning pain when swallowing shortly after admission and after taking nebulizers/inhalers. There were no oropheringial lesions seen on exam d/t her ongoing symptoms, she was empirically treated for esophageal candidiasis on 02/28. Symptoms improved with diflucan, flonase. Recommended patient to complete 2 weeks course of diflucan. Medication changes Diflucan for 2 weeks (started 02/28) Continue home medications as previously prescribed Pain was managed with Joice which she reported made her sleepy through the day, she was being weaned to Tylenol 3 Follow-up: PCP within 1 week of discharge from SNF Follow-up with orthopedic surgery, can follow-up with Dr. Hemphill in 2-3 weeks Followup: NONE,NONE [UNKNOWN] - Time spent managing pt's care (in minutes): 45
[2023-02-28] MEDS ORDERED: PHENOL 1.4% ORAL SPRAY 180ML MM PRN (08:50)
--- NOTE | 2023-02-28 08:52 | P.PN ---
Date of Service: 02/28/23 Subjective: throat feels sore, +ear pressure breathing feels okay afebrile ROS: 10 point ROS as noted above, otherwise negative Physical Exam: GEN: Alert, oriented, NAD HEENT: Normal conjunctiva, sclera anicteric; noraml tympanic membranes, normal ear canals, no fluid or erythema noted on otoscopic exam bilaterally CV: Regular rate and rhythm, trace edema, +Systolic Murmur Pulm: Nonlabored respirations on 2L NC ABD: Soft, nontender, nondistended MSK: pain with ROM - both hips Neuro: Normal speech, normal affect vitals reviewed Problem List: Nondisplaced fracture involving the right superior and inferior pubic rami. acute hypoxic respiratory failure Suspected pneumonia Congestion/bilateral ear pain Hypertension Hyperlipidemia Anxiety Depression Tobacco use Nondisplaced fracture involving the right superior and inferior pubic rami. CT pelvis (02/21): Nondisplaced fracture of the right obturator ring. Nondisplaced left pubic symphysis fracture. No proximal femur fracture identified CT lumbar spine (02/21): No acute fracture of the lumbar spine. Ortho consulted, however state never contacted/informed nondisplaced fracture, stable; non-operative management, to f/u in ortho office Conservative therapy Continue PT/OT PRN pain medication added tylenol #3 d/t norco making her drowsy norco DCd 02/28 acute hypoxic respiratory failure Suspected pneumonia Patient may need home O2 on discharge CXR (02/23): Patchy airspace opacities involving left mid lung and right lung base: pneumonia vs pulmonary edema, or combo of both CT chest (02/28): Mild bilateral lobe consolidations likely pneumonia Blood culture (02/23): No growth Started Levaquin (02/28-) Pulmonology consulted 02/28 wean oxygen Congestion/bilateral ear pain exam normal by otoscope, no fluid, no erythema, no evidence of infection PRN phenaseptic spray added 02/28 flonase added 02/28 Esophagitis states started / worsened with breathing treatments and steroid inhaler given symptoms, and with no improvement / some worsening, will empirically treat with diflucan, starting 02/28 Hypertension Hyperlipidemia Anxiety Depression Continue home medications Tobacco use Smoking cessation advised VTE: Lovenox Code: Full Dispo: SNF ~1-2 days ss/cm consulted
--- NOTE | 2023-02-28 10:13 | RAD REPORT ---
EXAM DESCRIPTION: CT - Thorax Wo Con - 02/28/2023 9:58 am CLINICAL HISTORY: sob COMPARISON: February 26, 2023 TECHNIQUE: Computed axial tomography of the chest was obtained. Contrast was not requested. All CT scans are performed using dose optimization technique as appropriate and may include automated exposure control or mA/KV adjustment according to patient size. FINDINGS: The evaluation of mediastinum, marcelo and vessels is limited secondary to lack of IV contras t administration. Moderate to marked centrilobular emphysema Mild bilateral lower lobe consolidations. No mediastinal or hilar lymphadenopathy is seen. Small pleural effusions. No pericardial effusion. Coronary arterial calcifications. Small hiatal snehal ia Bilateral renal calculi. Left adrenal adenoma IMPRESSION: COPD Mild bilateral lower lobe consolidations likely pneumonia
[2023-02-28] MEDS: levoFLOXacin 750 MG TAB PO SCH (11:56)
[2023-02-28] MEDS: ACETAMINOPHEN 500 MG TAB PO PRN (11:56)
[2023-02-28] MEDS ORDERED: FLUCONAZOLE 100 MG TAB PO ONE (20:04)
[2023-02-28] MEDS: FLUTICASONE 50MCG NASAL SPRAY NAS SCH (20:29)
[2023-02-28] MEDS: BUPROPRION HCL S.R. 150MG TAB PO SCH (20:29)
[2023-02-28] MEDS: ENSURE ENLIVE 237 ML CAN PO SCH (20:30)
[2023-03-01 04:36] LABS: Absolute Lymphocytes (CBC) 14.9 K/uL (0.7-4.9); Lymphocytes % 62.7 % (15.3-44.8); MCV 91.8 fL (80-100); RBC Red Blood Cell Count 4.14 M/uL (3.86-4.86)
[2023-03-01 04:55] LABS: Potassium 4.2 mEq/L (3.5-5.1)
--- NOTE | 2023-03-01 07:31 | P.PN ---
Date of Service: 03/01/23 Subjective: feeling a little better, talking more clearly today feels flonase is helping breathing improving afebrile ROS: 10 point ROS as noted above, otherwise negative Physical Exam: GEN: Alert, oriented, NAD HEENT: Normal conjunctiva, sclera anicteric; CV: Regular rate and rhythm, trace edema, +Systolic Murmur Pulm: Nonlabored respirations on 2L NC ABD: Soft, nontender, nondistended MSK: pain with ROM - both hips Neuro: Normal speech, normal affect vitals reviewed Problem List: Nondisplaced fracture involving the right superior and inferior pubic rami. acute hypoxic respiratory failure Suspected pneumonia Congestion/bilateral ear pain Hypertension Hyperlipidemia Anxiety Depression Tobacco use h/o leukemia Nondisplaced fracture involving the right superior and inferior pubic rami. CT pelvis (02/21): Nondisplaced fracture of the right obturator ring. Nondisplaced left pubic symphysis fracture. No proximal femur fracture identified CT lumbar spine (02/21): No acute fracture of the lumbar spine. Ortho consulted, however state never contacted/informed nondisplaced fracture, stable; non-operative management, to f/u in ortho office Conservative therapy Continue PT/OT PRN pain medication added tylenol #3 d/t norco making her drowsy norco DCd 02/28 acute hypoxic respiratory failure Suspected pneumonia h/o leukemia Patient may need home O2 on discharge CXR (02/23): Patchy airspace opacities involving left mid lung and right lung base: pneumonia vs pulmonary edema, or combo of both CT chest (02/28): Mild bilateral lobe consolidations likely pneumonia Blood culture (02/23): No growth Started Levaquin PO (02/28-) wean oxygen afebrile, Leukocytosis slightly worse today (19.8 -> 23.8) Congestion/bilateral ear pain exam normal by otoscope, no fluid, no erythema, no evidence of infection PRN phenaseptic spray added 02/28 flonase added 02/28 Esophagitis states started / worsened with breathing treatments and steroid inhaler given symptoms, and with no improvement / some worsening, will empirically treat with diflucan cont Diflucan (02/28-) Hypertension Hyperlipidemia Anxiety Depression Continue home medications Tobacco use Smoking cessation advised VTE: Lovenox Code: Full Dispo: SNF ~1-2 days ss/cm consulted
[2023-03-01] MEDS: FLUTICASONE 50MCG NASAL SPRAY NAS SCH ×2 (08:26→20:21)
[2023-03-01] MEDS: LOSARTAN POTASSIUM 50 MG TABLET PO SCH (08:27)
[2023-03-01] MEDS: DULERA 200/5 (MOMETASONE/FORMOTEROL) INHALER IH SCH ×2 (08:27→20:21)
[2023-03-01] MEDS: ACETAMINOPHEN 500 MG TAB PO PRN ×2 (08:28→20:26)
[2023-03-01] MEDS: FLUCONAZOLE 100 MG TAB PO SCH (08:28)
[2023-03-01] MEDS: levoFLOXacin 750 MG TAB PO SCH (08:28)
[2023-03-01] MEDS: LIDOCAINE 4% PATCH TOP SCH (08:29)
[2023-03-01] MEDS: ENSURE ENLIVE 237 ML CAN PO SCH ×2 (09:00→20:21)
[2023-03-01] MEDS: BUPROPRION HCL S.R. 150MG TAB PO SCH (20:21)
[2023-03-02 04:37] LABS: Absolute Lymphocytes (CBC) 15.3 K/uL (0.7-4.9); Hematocrit 38.1 % (36.0-45.0); Lymphocytes % 68.2 % (15.3-44.8); MCV 91.1 fL (80-100); MPV 7.8 fL (7.6-11.3); RBC Red Blood Cell Count 4.18 M/uL (3.86-4.86)
[2023-03-02 04:50] LABS: Magnesium 2.1 mg/dL (1.6-2.4); Potassium 4.1 mEq/L (3.5-5.1)
[2023-03-02] MEDS: FLUCONAZOLE 100 MG TAB PO SCH (08:39)
[2023-03-02] MEDS: LIDOCAINE 4% PATCH TOP SCH (08:39)
[2023-03-02] MEDS: LOSARTAN POTASSIUM 50 MG TABLET PO SCH (08:39)
[2023-03-02] MEDS: levoFLOXacin 750 MG TAB PO SCH (08:39)
[2023-03-02] MEDS: FLUTICASONE 50MCG NASAL SPRAY NAS SCH (08:40)
[2023-03-02] MEDS: ENSURE ENLIVE 237 ML CAN PO SCH (08:45)
[2023-03-02 08:57] VITALS: O2SAT 92
[2023-03-02] MEDS: DULERA 200/5 (MOMETASONE/FORMOTEROL) INHALER IH SCH (09:00)
[2023-03-02 09:21] VITALS: BP 176/88; TEMP 98
== END 2023-03-02 14:09 | DRG 535 ==
LOC: ER 21:35 → 4TH 02-22 01:32
PROVIDERS: ADMIT Internal Medicine Sleep Medicine; ATTEND Hospitalist
DX: S32.511A Fracture of superior rim of right pubis, initial encounter for closed fracture (principal); J18.9 Pneumonia, unspecified organism; J96.01 Acute respiratory failure with hypoxia; C95.90 Leukemia, unspecified not having achieved remission; I10 Essential (primary) hypertension; E78.5 Hyperlipidemia, unspecified; F41.9 Anxiety disorder, unspecified; J43.2 Centrilobular emphysema; E87.70 Fluid overload, unspecified; H92.03 Otalgia, bilateral; F32.A Depression, unspecified; F17.210 Nicotine dependence, cigarettes, uncomplicated; Z60.2 Problems related to living alone; Z88.0 Allergy status to penicillin; Z90.49 Acquired absence of other specified parts of digestive tract; Z79.899 Other long term (current) drug therapy; W01.0XXA Fall on same level from slipping, tripping and stumbling without subsequent striking against object, initial encounter; Y99.9 Unspecified external cause status; Y93.01 Activity, walking, marching and hiking; Y92.039 Unspecified place in apartment as the place of occurrence of the external cause
CPT/HCPCS: 36415; 71045; 71250; 72131; 72192; 80048; 81003; 82947; 83735; 84100; 84145; 85025; 87040; 94640; 97110; 97116; 97161; 97530; 99285; J0360; J0696; J1940; J2001; J3535; J7613